=== PATIENT | male | born 1985 | race African-American/Black ===

== ENCOUNTER 2019-09-10 07:03 | Emergency (ER) | payer OTHER ==
[~2019-09-10] VITALS: Ht 180 cm; Wt 91.0 kg
[~2019-09-10 07:03] MED LIST: CYCL10TA9 PO; KETO75CA PO; LIDOCAINE/EPI 2% 1:100,00 (XYLOCAINE) 20 ML VIAL ONE; META800T5 PO
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
--- OUTSIDE RECORDS SUMMARY | 2019-09-10 07:10 | XMS REPORT ---
Author Author Darrel PEREZ Organization [facility] Address [address] [place] [address] Care Team Providers Care Public Space Attendant Name Role Phone BG PEREZ Unavailable PROBLEMS Type Condition ICD9-CM Code [id number] Code Onset Dates Condition S tatus SNOMED Code Problem Unspecified personality disorder F60.9 Active 40493610 Problem Unspecified episodic mood disorder F39 Active 31220219 Problem Other bipolar disorders F31.89 Active 39437641 Problem Anxiety state, unspecified F41.1 Act israel [id number] ALLERGIES No Information ENCOUNTERS Encounter Location Date Diagnosis [facility] [address] [facility] [id number] [address] [place] [address] Mar, Screening for tuberculosis Z 11.1 [facility] [address] [facility] [place] [address] Jul, Unspecified episodic mood disorder F39 ; Anxiety state, unspecified F41.1 ; Unspecified personality disorder F60.9 and Other bipolar disorders F31.89 [facility] [address] [facility] [id number] [place] [id number] Feb, Dental examination V72.2 [facility] [address] [facility] [place] [address] Sep, [facility] [id number] [place] [address] Sep, [facility] [id number] [place] [address] Nov, [facility] [id number] [place] [address] Nov, [facility] [id number] [place] [address] Dec, [facility] [id number] [place] [address] Nov, [facility] [address] [facility] [place] [address] Nov, [facility] [address] [facility] [place] [address] Nov, [facility] [address] [facility] [place] [address] October, [facility] [id number] [place] [address] October, [facility] [address] [facility] [place] [address] Jul, [facility] [address] [facility] [place] [address] Jun, [facility] [address] [facility] [place] [address] May, [facility] [address] [facility] [place] [address] May, IMMUNIZATIONS No Known Immunizations SOCIAL HISTORY Never Assessed REASON FOR VISIT PLAN OF CARE VITAL SIGNS MEDICATIONS No Known Medications RESULTS No Results PROCEDURES No Known procedures INSTRUCTIONS MEDICATIONS ADMINISTERED No Known Medications
--- OUTSIDE RECORDS SUMMARY | 2019-09-10 07:10 | XMS REPORT ---
Author Author Darrel BINGHAM [facility] Address [address] [place] [address] Care Team Providers Care Commodity Analyst Name Role Phone ZACHERY JASPREET Unavailable PROBLEMS Type Condition ICD9-CM Code [id number] Code Onset Dates Condition S tatus SNOMED Code Problem Unspecified episodic mood disorder F39 Active 12320699 Problem Unspecified personality disorder F60.9 Active 09233140 Problem Anxiety state, unspecified F41.1 Act israel 126047397 Problem Other bipolar disorders F31.89 Active 45709778 ALLERGIES No Known Allergies ENCOUNTERS Encounter Location Date Diagnosis [facility] [address] [facility] [id number] [address] [place] [address] Mar, Screening for tuberculosis Z 11.1 [facility] [address] [id number] [address] [place] [address] Jul, Unspecified episodic mood di sorder F39 ; Anxiety state, unspecified F41.1 ; Unspecified personality disorder F60.9 and Other bipolar disorders F31.89 [facility] [address] [id number] [address] [place] [id number] Feb, Dental examination V72.2 [facility] [address] [facility] [id number] [address] [place] [address] Sep, [facility] [address] [facility] [id number] [address] [place] [address] Sep, [facility] [address] [facility] [id number] [address] [place] [address] Nov, [facility] [address] [facility] [id number] [address] [place] [address] Nov, [facility] [address] [id number] [address] [place] [address] Dec, [facility] [address] [id number] [address] [place] [address] Nov, [facility] [address] [id number] [address] [place] [address] Nov, [facility] [address] [id number] [address] [place] [address] Nov, [facility] [address] [id number] [address] [place] [address] October, [facility] [address] [id number] [address] [place] [address] October, [facility] [address] [id number] [address] [place] [address] Jul, [facility] [address] [id number] [address] [place] [address] Jun, [facility] [address] [id number] [address] [place] [address] May, [facility] [address] [id number] [address] [place] [address] May, IMMUNIZATIONS No Known Immunizations SOCIAL HISTORY Never Assessed REASON FOR VISIT TB test per pts request. [email or web address] PLAN OF CARE VITAL SIGNS Height 67 in 2017-04-13 Weight 158.2 lbs 2017-04-13 Temperature 98.2 degrees Fahrenheit 2017-04-13 Heart Rate 72 bpm 2017-04-13 Respiratory Rate 18 2017-04-13 BMI 24.77 kg/m2 2017-04-13 Blood pressure systolic 126 mmHg 2017-04-13 Blood pressure diastolic 84 mmHg 2017-04-13 MEDICATIONS No Known Medications RESULTS No Results PROCEDURES Procedure Date Ordered Result Body Site TB INTRADERMAL TEST Apr 13, 2017 INSTRUCTIONS MEDICATIONS ADMINISTERED No Known Medications
--- OUTSIDE RECORDS SUMMARY | 2019-09-10 07:10 | XMS REPORT ---
Author Author Darrel PELAEZ [facility] Address [address] [place] [address] Care Team Providers Care Plant Ecologist Name Role Phone TRACEY PELAEZ Unavailable PROBLEMS Type Condition ICD9-CM Code [id number] Code Onset Dates Condition S tatus SNOMED Code Problem Unspecified episodic mood disorder F39 Active 90282616 Problem Unspecified personality disorder F60.9 Active 44472057 Problem Anxiety state, unspecified F41.1 Act israel 598177633 Problem Other bipolar disorders F31.89 Active 95695843 ALLERGIES No Information SOCIAL HISTORY Never Assessed PLAN OF CARE Activity Details Follow Up 1 Week Reason:anxiety, anger , impulse control VITAL SIGNS MEDICATIONS Unknown Medications RESULTS No Results PROCEDURES Procedure Date Ordered Result Body Site Psych diagnostic evaluation, new patient Jul 29, 2016 IMMUNIZATIONS No Known Immunizations
--- OUTSIDE RECORDS SUMMARY | 2019-09-10 07:10 | XMS REPORT ---
Author Author Darrel MONROE Organization [employer] Address Unknown Phone Unavailable Care Team Providers Care Pharmacology Associate Name Role Phone MAGGIE MONROE CP Unavailable Allergies, Adverse Reactions, Alerts Substance Reaction Event Type N.K.D.A. Info Not Available Non Drug Allergy Problems Problem Type Condition Code Onset Dates Condition Statu s Problem Unspecified episodic mood disorder 296.90 Active Problem Unspecified personality disorder 301.9 Active Problem Other and unspecified bipolar disorders 296.89 Active Problem Anxiety state, unspecified 300.00 A ctive Assessment Dental examination V72.2 Active Medications Medication Code System Code Instructions Start Date End Date Status Dosage [facility] [id number] 5-325 MG Orally every 6 hrs Mar 13, 2015 Mar 17, 2015 1 tablet as needed Procedures Procedure Coding System Code Date INTRAORL-PERIAPICAL 1 FILM 41215 CPT-4 D0220 Mar 13, 2015 PANORAMIC FILM SEE ALSO CODE 96326 CPT-4 D0330 Mar 13, 2015 LTD ORAL EVALUATION - PROBLEM FOCUS CPT-4 D0140 Mar 13, 2015 SURG REMOVAL ERUPTED TOOTH CPT-4 D7210 Mar 13, 2015 SURG REMOVAL ERUPTED TOOTH CPT-4 D7210 Mar 13, 2015 Vital Signs Date/Time: Mar 13, 2015 Blood Pressure Diastolic 87 mmHg Blood Pressure Systolic 129 mmHg Results No Known Results Summary Purpose eClinicalWorks Submission
--- OUTSIDE RECORDS SUMMARY | 2019-09-10 07:10 | XMS REPORT ---
Author Author Darrel Delgado Doctor Organization [facility] Address Unknown Phone Unavailable Care Team Providers Care Digital Sales Director Name Role Phone Migration, Doctor Unavailable Unavailable PROBLEMS Type Condition ICD9-CM Code LFH69-UG Code Onset Dates Condition S tatus SNOMED Code Problem Unspecified personality disorder F60.9 Active 16377592 Problem Unspecified episodic mood disorder F39 Active 10464636 Problem Other bipolar disorders F31.89 Active 11225977 Problem Anxiety state, unspecified F41.1 Act israel [id number] ALLERGIES No Information ENCOUNTERS Encounter Location Date Diagnosis [facility] [address] [facility] [id number] [address] [place] [address] Mar, Screening for tuberculosis Z 11.1 [facility] [address] [id number] [address] [place] [address] Jul, Unspecified episodic mood di sorder F39 ; Anxiety state, unspecified F41.1 ; Unspecified personality disorder F60.9 and Other bipolar disorders F31.89 [facility] [address] [id number] [address] [place] [phone] Feb, Dental examination V72.2 [facility] [address] [facility] [id number] [address] [place] [address] Sep, [facility] [address] [facility] [id number] [address] [place] [address] Sep, [facility] [address] [facility] [id number] [address] [place] [address] Nov, [facility] [address] [facility] [id number] [address] [place] [address] Nov, [facility] [address] [facility] [id number] [address] [place] [address] Dec, [facility] [address] [facility] [id number] [address] [place] [address] Nov, [facility] [address] [id number] [address] [place] [address] Nov, [facility] [address] [id number] [address] [place] [address] Nov, [facility] [address] [id number] [address] [place] [address] October, [facility] [address] [id number] [address] [place] [address] October, [facility] [address] [id number] [address] [place] [address] Jul, [facility] [address] [id number] [address] [place] [address] Jun, [facility] [address] [id number] [address] [place] [address] May, [facility] [address] [id number] [address] [place] [address] May, IMMUNIZATIONS No Known Immunizations SOCIAL HISTORY Never Assessed REASON FOR VISIT [facility] PLAN OF CARE VITAL SIGNS MEDICATIONS Medication Instructions Dosage Frequency Start Date End Date Duration S tatus Diflucan 150 mg take 1 tablet by Oral route once 1 ti me per day Nov, Active Tegretol 200 mg take 1 tablet by Oral route 2 times per day Nov, Active RESULTS No Results PROCEDURES No Known procedures INSTRUCTIONS MEDICATIONS ADMINISTERED No Known Medications
[2019-09-10] MEDS ORDERED: ZIPRASIDONE 20 MG INJ (GEODON) VIAL IM ONE (07:11)
[2019-09-10] MEDS ORDERED: WATER (STERILE) FOR INJECTION 10 ML ONE (07:11)
--- NOTE | 2019-09-10 07:30 | NUR ---
DR RAMACHANDRAN TO SHIVA NARAYANAN PT ALLOWED TO STAPLE WOUND 4X4'S AND COBAN APPLIED
--- NOTE | 2019-09-10 07:35 | NUR ---
PPD HAS PUT PT IN HANDCUFFS
--- NOTE | 2019-09-10 07:35 | NUR ---
PT CONT TO BE VERY AGGRESSIVE AND COMBATIVE. PT TAKEN DOWN TO GROUND BY PPD FOR SAFETY. PT L ARM CONT TO BE WRAPPED W COBAN. PT VOMITED X 3, PT HEAD TO SIDE AND MOVED AWAY FROM VOMIT. PT CONT TO BE COMBATIVE AND AGGRESSIVE. PT L ARM BLEEDING, UNWRAPPED CLEANED AND REWRAPPED W 4X4 AND COBAN 9 BRAEDEN INTACT BEFORE
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
[2019-09-10 07:39] VITALS: BP 0/0
--- NOTE | 2019-09-10 07:39 | NUR ---
PT ESCORTED TO POLICE CAR IN HANDCUFFS BY [facility]
== END 2019-09-10 07:39 ==
LOC: EDUNIT# 07:03 → ER 07:05
DX: S51.812A Laceration without foreign body of left forearm, initial encounter (principal); F10.129 Alcohol abuse with intoxication, unspecified; F91.8 Other conduct disorders; F17.200 Nicotine dependence, unspecified, uncomplicated; W26.0XXA Contact with knife, initial encounter